=== PATIENT | male | born 1940 | race Caucasian/White ===

== ENCOUNTER 2017-07-10 15:41 | Inpatient (IN) | payer OTHER, BC ==
[2017-07-10] MEDS ORDERED: ACETAMINOPHEN 325 MG TAB PO PRN (17:31)
[2017-07-10] MEDS ORDERED: ONDANSETRON DISINTEGRATING 4 MG TAB PO PRN (17:31)
[2017-07-10] MEDS ORDERED: ONDANSETRON 4 MG/2 ML VIAL IVP PRN (17:31)
[2017-07-10] MEDS ORDERED: NS 1,000 ML IV SCH (18:30)
[2017-07-10] MEDS ORDERED: ALBUTEROL 60 PUFFS/8 GM MDI IH PRN (18:45)
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
[2017-07-10] MEDS ORDERED: IOPAMIDOL (ISOVUE-300) 100 ML BTL ONE (19:53)
[2017-07-10] MEDS: FAMOTIDINE 20 MG/NACL 50 ML IV SCH (21:11)
[2017-07-11 03:57] LABS: INR 2.43 (0.83-1.16); PROTIME(PATIENT) 26.4 SEC (12.0-15.0)
[2017-07-11 03:58] LABS: PLATELET COUNT 181 10^3/uL (150-400)
[2017-07-11] MEDS: FAMOTIDINE 20 MG/NACL 50 ML IV SCH (09:50)
[2017-07-11] MEDS: TESTOSTERONE TD SCH (09:51)
[2017-07-11] MEDS ORDERED: NS 1,000 ML IV SCH (13:00)
--- NOTE | 2017-07-11 13:02 | HOSPPROG ---
Hospitalist Progress Note Assessment/Plan: This is a 76 yo male with hx of Metastatic Esophageal cancer with recent biliary stent placed on 07/06 at [facility] who presents with abd pain, jaundice, and distention. CT shows questionable pancreatitis Overnight his abd pain is improved with bowel rest GI and Onc consults are pending #Acute on Chronic Abd Pain #Metastatic Esophageal Cancer #Normocytic Anemia #Coagulopathy -AC has been held for over a week, etiology is likely liver #Acute Metabolic Encephalopathy, resolved, he appears likely at baseline #Transaminitis #Bacteriuria: He is not symptomatic #GERD #Hx of P.E.: Xarelto has been held #CAD Plan: Cont with bowel rest Cont with IVF Check Lipase. E/o pancreatitis noted on CT Abd/Pelivs His abd is not tender on my exam today Cont to hold Xarelto Repeat INR Await industrial rehabilitation consultant recommendations Subjective: abd pain is better. seems less confused. no cp or sob. Objective: Vital Signs Temp Pulse Resp BP Pulse Ox 36.6 C 104 H 16 115/68 94 07/11/17 08:08 07/11/17 08:08 07/11/17 08:08 07/11/17 08:08 07/11/17 08:08 Microbiology 07/10/17 19:36 Respiratory Panel (PCR) - Final Nasal, Sinus - Swab No Organism Detected Laboratory Results 07/11/17 03:39 07/11/17 03:39 07/10/17 07/11/17 07/12/17 05:59 05:59 05:59 Intake Total 540 Output Total 200 Balance 340 PT 26.4 SEC (12.0-15.0) H 07/11/17 03:39 INR 2.43 (0.83-1.16) H 07/11/17 03:39 - Physical Exam Constitutional: no apparent distress, appears nourished, not in pain Eyes: PERRL, EOMI Ears, Nose, Mouth, Throat: moist mucous membranes, hearing normal, No dry mucous membranes Cardiovascular: regular rate and rhythym, edema (trace) Respiratory: no respiratory distress, no rales or rhonchi Gastrointestinal: distension Skin: warm Neurologic: AAOx3 Psychiatric: interacting appropriately, not anxious, not encephalopathic Lymph, Heme, Immunologic: No petechiae ICD10 Worksheet Patient Problems: Problems Problem Status Onset Jaundice Acute - ICD10 Problem Qualifiers (1) Jaundice
--- NOTE | 2017-07-11 14:02 | ASMTCMCOM ---
CM Note CM Note Notes: Pt admitted with esophageal cancer with mets to the liver and abdomen. CM will follow for DC needs. Date Signed: 07/11/2017 02:01 PM Electronically Signed By:Nemo Avelar LCSW
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
[2017-07-11] MEDS ORDERED: MAGNESIUM HYDROXIDE 30 ML UDCUP PO PRN (18:52)
[2017-07-11] MEDS ORDERED: BISACODYL 10 MG SUPP PR PRN (18:52)
[2017-07-11] MEDS ORDERED: POLYETHYLENE GLYCOL 3350 17 GM PKT PO PRN (18:52)
[2017-07-11] MEDS ORDERED: LACTULOSE 20 GM/30 ML UDCUP PO PRN (18:52)
[2017-07-11] MEDS: SENNOSIDES/DOCUSATE SODIUM TAB PO SCH (20:32)
[2017-07-11] MEDS ORDERED: oxyCODONE IR 5 MG TAB PO PRN (21:15)
[2017-07-12 05:33] LABS: PLATELET COUNT 148 10^3/uL (150-400)
[2017-07-12 05:44] LABS: INR 2.6 (0.83-1.16); PROTIME(PATIENT) 27.8 SEC (12.0-15.0)
[2017-07-12 08:34] VITALS: BP 124/64
[2017-07-12] MEDS: SENNOSIDES/DOCUSATE SODIUM TAB PO SCH (08:53)
[2017-07-12] MEDS: FAMOTIDINE 20 MG/NACL 50 ML IV SCH (08:53)
[2017-07-12] MEDS: TESTOSTERONE TD SCH (08:53)
--- NOTE | 2017-07-12 12:57 | SOAPPROG ---
SOAP Progress Note Assessment/Plan: Assessment: Abd pain much improved passing gas and had small BM. Tolerating PO LFT improving post stent Plan: OK to d/c home when tolerating PO Will sign off 07/12/17 12:55 Subjective: CC abd pain Overall much better and passing gas Objective: Vital Signs Temp Pulse Resp BP Pulse Ox 36.7 C 81 16 124/64 H 96 07/12/17 08:33 07/12/17 08:33 07/12/17 08:33 07/12/17 08:33 07/12/17 08:33 Laboratory Results 07/12/17 05:20 07/12/17 05:20 07/11/17 07/12/17 07/13/17 05:59 05:59 05:59 Intake Total 540 1739 Output Total 200 600 500 Balance 340 1139 -500 PT 27.8 SEC (12.0-15.0) H 07/12/17 05:20 INR 2.60 (0.83-1.16) H 07/12/17 05:20 Physical Exam - Physical Exam Respiratory: lungs clear Cardiac/Chest: regular rate, rhythm Abdomen: soft, distended ICD10 Worksheet Patient Problems: Problems Problem Status Onset Jaundice Acute
--- NOTE | 2017-07-12 14:28 | ASMTCMCOM ---
CM Note CM Note Notes: Pt ready for DC today. Met with pt and to discuss DC needs. They could not identify any. Date Signed: 07/12/2017 02:27 PM Electronically Signed By:Nemo Avelar LCSW
--- NOTE | 2017-07-12 14:35 | PDDCSUM ---
Discharge Summary Discharge Summary: This is a 76 yo male with hx of Metastatic Esophageal cancer with recent biliary stent placed on 07/06 at [facility] who was admitted with abd pain, jaundice, and distention and Ileus vs obstruction. He received conservative mgmt and did well. Diet has been advanced and he is tolerating a regular diet. He will f/u with GI and their office will call him to set up an appt. CT shows questionable pancreatitis. However lipase was not elevated. no pain on discharge. DDx: #Ileus vs Obstruction, resolved conservatively #Acute on Chronic Abd Pain #Metastatic Esophageal Cancer #Normocytic Anemia #Coagulopathy -AC has been held for over a week, etiology is likely liver -repeat INR is 2.6. This should be repeated in an outpatient setting #Acute Metabolic Encephalopathy, resolved, he appears likely at baseline #Transaminitis, improving #Bacteriuria: He is not symptomatic #GERD #Hx of P.E.: Xarelto can continue to be held. #CAD Exam: VSS JAUNDICED NAD AAOX3 RRR CTA B DISTENDED ABD, NO PAIN NO LE EDEMA MEDS: SEE MED REC F/U: WITH GI. ALSO WITH PCP TOTAL TIME SPENT ON D/C IS 35 MINS. D/W GI AND NURSING.
== END 2017-07-12 15:09 | disposition home or self-care (01) | DRG 391 ==
LOC: F1N 16:57
PROVIDERS: ADMIT Internal Medicine; ATTEND Internal Medicine
DX: R10.9 Unspecified abdominal pain (principal); R14.0 Abdominal distension (gaseous); G93.41 Metabolic encephalopathy; C15.9 Malignant neoplasm of esophagus, unspecified; C78.7 Secondary malignant neoplasm of liver and intrahepatic bile duct; R74.0 Nonspecific elevation of levels of transaminase and lactic acid dehydrogenase [LDH]; D64.9 Anemia, unspecified; I25.10 Atherosclerotic heart disease of native coronary artery without angina pectoris; G47.33 Obstructive sleep apnea (adult) (pediatric); K21.9 Gastro-esophageal reflux disease without esophagitis; K22.70 Barrett's esophagus without dysplasia; R73.03 Prediabetes; Z87.891 Personal history of nicotine dependence; Z86.711 Personal history of pulmonary embolism; Z79.01 Long term (current) use of anticoagulants; Z95.5 Presence of coronary angioplasty implant and graft
CPT/HCPCS: J1642; J2270; Q9967